=== PATIENT | male | born 1975 | race Two or more races ===

== ENCOUNTER 2022-03-08 05:35 | Observation (INO) ==
[2022-03-08 06:14] LABS: Basophils % 0.4 % (0.0-0.8); Eosinophils # 0.2 10*3/uL (0.0-0.87); Eosinophils % 2.4 % (0.00-10.9); Hematocrit 44.4 VOL% (42.0-52.0); Hemoglobin 14.7 GM/DL (14.0-18.0); Lymphocytes # 2.2 10*3/uL (1.4-4.0); Lymphocytes % 21.4 % (21.2-54.2); Mean Corpuscular HGB Conc 33.1 GM/DL (32-36); Mean Corpuscular Volume 81.5 FL (87-102); Mean Platelet Volume 10.1 FL (9.6-12.0); Monocytes # 0.7 10*3/uL (0.11-0.8); Monocytes % 6.9 % (1.7-12.7); Neutrophils % 67.9 % (38.7-73.9); Platelet Count 385 T/CUMM (130-400); Red Blood Count 5.45 MC/CUMM (3.8-5.5); White Blood Count 10.1 T/CUMM (4-12)
[2022-03-08 06:27] LABS: PT Patient Result 10.7 SECS (10.1-12.1); Partial Thromboplastin Time 26.3 SECS (23.7-32.9)
[2022-03-08 06:36] LABS: Albumin 3.7 G/DL (3.4-5.0); Bilirubin,Total 0.4 MG/DL (0.20-1.00); Calcium 9.6 MG/DL (8.5-10.1); Osmolality,Calculated 283.7 MOS/KG (273-304); Potassium 3.7 MMOL/L (3.5-5.1); Total Protein 7.3 G/DL (6.4-8.2)
[2022-03-08] MEDS ORDERED: METOPROLOL TARTRATE 5 MG/5 ML VIAL IV STA (09:15)
[2022-03-08] MEDS ORDERED: ASPIRIN 325 MG TABLET PO ONE (09:31)
[2022-03-08] MEDS ORDERED: MAGNESIUM SULF RIDER 2 GM/50 ML PREMIX IV PRN ×2 (09:31→09:35)
[2022-03-08] MEDS ORDERED: DIAZEPAM 5 MG TABLET PO ONE (09:31)
[2022-03-08] MEDS ORDERED: POTASSIUM CHLORIDE RIDER 10 MEQ/100 ML PREMIX IV PRN (09:31)
[2022-03-08] MEDS ORDERED: diphenhydrAMINE CAP 25 MG CAPSULE PO ONE (09:31)
[2022-03-08] MEDS ORDERED: HEPARIN/NACL 0.9% 2 UNITS/ML 2,000 UNIT/1,000 ML BAG IV ONE (09:33)
[2022-03-08] MEDS ORDERED: MIDAZOLAM 2 MG/2 ML VIAL ONE (09:33)
[2022-03-08] MEDS ORDERED: fentaNYL 100 MCG/2 ML VIAL ONE (09:33)
[2022-03-08 09:38] VITALS: BP 138/87
[2022-03-08 09:43] LABS: Risk Ratio 4.02; VLDL Cholesterol 54.8 MG/DL
[2022-03-08] MEDS ORDERED: SODIUM CHLORIDE 0.45% 1,000 ML IV SCH (10:00)
[2022-03-08] MEDS ORDERED: ONDANSETRON 4 MG/2 ML VIAL IV PRN (10:59)
[2022-03-08] MEDS ORDERED: ZALEPLON 5 MG CAPSULE PO PRN (10:59)
[2022-03-08] MEDS ORDERED: GLUCAGON 1 MG VIAL IM PRN ×2 (10:59→14:33)
[2022-03-08] MEDS ORDERED: DEXTROSE 10% 250 ML BAG IV PRN ×2 (11:04→14:47)
[2022-03-08] MEDS ORDERED: ACETAMINOPHEN 325 MG TABLET PO PRN (13:29)
[2022-03-08] MEDS ORDERED: metFORMIN 500 MG TABLET PO SCH (15:00)
[2022-03-08 15:48] LABS: Folate 13.63 NG/ML (5.38-24.0)
[2022-03-08] MEDS ORDERED: INSULIN LISPRO 100 UNIT/ML SUBCUT SCH (16:30)
[2022-03-08] MEDS ORDERED: METOPROLOL TARTRATE 25 MG TABLET PO SCH (21:00)
[2022-03-08] MEDS ORDERED: INSULIN GLARGINE 100 UNIT/ML SUBCUT SCH (21:00)
[2022-03-09] MEDS ORDERED: FENOFIBRATE 145 MG TABLET PO SCH (09:00)
[2022-03-09] MEDS ORDERED: ASPIRIN EC 81 MG TABLET PO SCH (09:00)
[2022-03-09] MEDS ORDERED: Empagliflozin [Jardiance] 25 mg tablet PO SCH (09:00)
[2022-03-11] MEDS ORDERED: Semaglutide [Ozempic] 0.25 mg or 0.5 mg(2 mg/1.5 mL) Pen Injecto SUBCUT SCH (14:31)
== END 2022-03-08 18:13 | disposition home or self-care (01) ==
LOC: N.EDINP 05:35 → N.ED 05:35 → N.2W 09:38
PROVIDERS: ADMIT Family Medicine; ATTEND Family Medicine
PROC: CLCCHCL (ICD-10-PCS; 2022-03-08 10:00)